=== PATIENT | female | born 1990 | race Caucasian/White ===

== ENCOUNTER 2018-01-20 10:58 | Emergency (ER) | END 2018-01-20 14:27 | disposition home or self-care (01) ==

== ENCOUNTER 2018-07-13 11:09 | Outpatient (CLI) | END 2018-07-13 16:22 | disposition home or self-care (01) ==

== ENCOUNTER 2018-07-27 13:35 | Outpatient (CLI) | payer MEDICAID ==
[~2018-07-27] VITALS: Ht 165.1 cm; Wt 100.0 kg
[2018-07-27 15:32] VITALS: BP 119/76; PULSE 82; RESP 18
[2018-07-27] MEDS ORDERED: TERBUTALINE 1 MG/ML INJ SC ONE (17:00)
[2018-07-27 17:16] VITALS: Ht 165.1 cm; Wt 100.0 kg
[2018-07-27] MEDS ORDERED: PREN-19 PO (18:09)
--- NOTE | 2018-07-27 18:15 | TRIAGE ---
OB Triage Datetime Report Generated by CPN: 07/27/2018 18:14 Datetime: 07/27/2018 17:29 Labor Evaluation Frequency: 2-6 Monitor Mode: External Duration (sec)2399: 50-100 Quality: Moderate Pattern: Normal: <= 5 Contractions in 10 Minutes Resting Tone [place]: Relaxed Heart Rate FHR Baseline Rate: 125 Monitor Mode: External US FHR Baseline Changes: No Baseline Change Variability: Moderate 6-25 bpm Accelerations: 15X15 Decelerations: None Category: Category I Pain Assessment Pain Scale: 3 Pain Presence: Intermittent Pain Type: Contraction Pain Location: Abdomen; Back Pain Goal: 2 Pain Relief Measures: Comfort Measures Datetime: 07/27/2018 16:29 Labor Evaluation Frequency: 5-9 Monitor Mode: External Quality: Mild Pattern: Normal: <= 5 Contractions in 10 Minutes Resting Tone [place]: Relaxed Heart Rate FHR Baseline Rate: 130 Monitor Mode: External US FHR Baseline Changes: No Baseline Change Variability: Moderate 6-25 bpm Accelerations: 15X15 Decelerations: None Category: Category I Pain Assessment Pain Scale: 3 Pain Presence: Intermittent Pain Type: Contraction Pain Location: Abdomen; Back Pain Goal: 2 Pain Relief Measures: Comfort Measures Datetime: 07/27/2018 15:36 Assessment Type: Triage Maternal Assessment Level of Consciousness: Fully Conscious DTR's/Clonus: DTRs 2+; No Clonus Headache: Denies Blurred Vision: No Respiratory Effort: Unlabored; Regular Rhythm; Equal Expansion Breath Sounds, Left: Clear and Equal Breath Sounds, Right: Clear and Equal Nausea/Vomiting: Denies RUQ Epigastric Pain: Denies Lower Extremities Edema: None Degree: None Upper Extremities Edema: None Degree: None Facial Edema: None Fall Risk Assessment History of Falling: (0) No Secondary Diagnosis: (0) No Ambulatory Aid: (0) Bedrest/Nurse Assist IV Therapy: (0) No Gait: (0) Normal/Bedrest/Immobile Mental Status: (0) Oriented to Own Ability Fall Score: 0 Fall Risk Score Definition: No Risk: No action required Datetime: 07/27/2018 15:35 Time of Arrival: 07/27/2018 15:25 EGA: 35.6 Arrived By: Wheelchair Arrived From: Home Chief Complaint: c/o lower abdominal pain Movement: Present Contractions: Denies/Absent Rupture of Membranes: Denies Vaginal Discharge: Denies Recent Sexual Intercouse: Denies Abdominal Trauma: Not Applicable Patient Complaints: Other Time Provider Notified: 07/27/2018 16:42 Provider Notified: Had[place] Initial Plan: NST, BPP, PO fluids, UA and UC, Terb 0.25mg x1 subQ Datetime: 07/27/2018 15:32 Monitor Mode: External Pattern: Normal: <= 5 Contractions in 10 Minutes Resting Tone [place]: Relaxed Heart Rate FHR Baseline Rate: 129 Monitor Mode: External US FHR Baseline Changes: No Baseline Change Variability: Moderate 6-25 bpm Accelerations: 15X15 Decelerations: None Category: Category I Datetime: 07/13/2018 11:16 EGA: 33.6 Fall Score: 0 Fall Risk Score Definition: No Risk: No action required Datetime: 07/02/2018 14:04 Fall Score: 0 Fall Risk Score Definition: No Risk: No action required Datetime: 07/02/2018 14:02 EGA: 32.2
--- NOTE | 2018-07-27 18:28 | PN ---
Triage Information Date/Time 07/27/2018 Reason for visit: Size less than dates Weeks of Gestation 35 weeks and 6 days /Para 4 para 3 Diabetes: none Hypertention: none Additional information 28-year-old with IUP at 35 weeks and 6 days presented with complaint of lower abdominal pain and contractions. She denies any leaking of fluid, vaginal bleeding or decreased movement. She was noted to have contractions every 3-8 minutes. She denies any urinary symptoms or any other complication during her course. Objective Vital Signs Date Temp Pulse Resp B/P (MAP) Pulse Ox O2 O2 Flow FiO2 Time Delivery Rate 07/27/18 98.3 82 18 119/76 15:32 (90) Heart Rate: 130's Heart Rate Comments Category 1 Contractions: 6-10 Minutes Apart Exam General appearance: Alert and oriented x4 does not appear to be in any acute distress Abdomen: Soft, gravid, fundal height consider gestational age, no tenderness, no rebound tenderness, no guarding or rigidity NST: Category 1 BPP: 8/8 Initially contractions every 3-8 minutes noted and after hydration and a dose of terbutaline significantly resolved UA is not suggestive of UTI however urine culture was sent. Patient is asymptomatic SVE: Closed and long Results/Medications Results 24 hrs Laboratory Tests Test 07/27/18 15:30 Urine Color YELLOW Urine Clarity CLEAR Urine pH 7.0 Urine Specific [place] 1.010 Urine Ketones NEGATIVE Urine Nitrite NEGATIVE Urine Bilirubin NEGATIVE Urine Urobilinogen NEGATIVE Urine Leukocyte Esterase 3+ H Urine Microscopic RBC 21 H Urine Microscopic WBC 3 Urine Bacteria FEW A Urine Hemoglobin 2+ H Urine Glucose NEGATIVE Urine Total Protein NEGATIVE Imaging Results PROCEDURE: OB ultrasound for biophysical profile CLINICAL INDICATION: labor. TECHNIQUE: Multiple sonographic images of the pelvis were obtained. Transabdominal view of the gravid uterus are available for review. The images were reviewed on a PACS workstation. COMPARISON: 07/13/2018 FINDINGS: breathing movement = 2/2 tone = 2/2 motion = 2/2 Quantitative amniotic fluid volume = 2/2 GILBERTO = 15.9 cm Single live intrauterine with cardiac activity at 132 beats per minute. There is a anterior placenta without previa or abruption. IMPRESSION: 1. Single living intrauterine gestation in cephalic position. 2. Biophysical profile = 8/8. 3. GILBERTO = 15.9 cm. RPTAT: [facility] Disposition: Discharge Assessment/Plan IUP at 35 weeks and 6 days [place] contractions symptomatic resolved after hydration and a dose of terbutaline testing reassuring DC home labor precautions kick count discussed Patient to to be seen in the primary OB office within 48 hours after discharge from the hospital. Advised the patient to inform the primary OB office to follow with the urine culture result. Currently UA is not suggestive of UTI. Adequate hydration discussed JOLLY LANDAVERDE MD Jul 27, 2018 18:28
== END 2018-07-27 18:15 | disposition home or self-care (01) ==
LOC: OBT 13:35 → L-D 13:36 → OBT 18:15
PROVIDERS: ATTEND Obstetrics & Gynecology
DX: O26.843 Uterine size-date discrepancy, third trimester (principal); O62.9 Abnormality of forces of labor, unspecified; Z3A.35 35 weeks gestation of pregnancy
CPT/HCPCS: 76818; 81001; 87086; 96372; J3105; Z7500; G0463